=== PATIENT | female | born 1950 | race Caucasian/White ===

== ENCOUNTER 2020-12-21 12:25 | Emergency (ER) | payer BC, MEDICARE ==
[~2020-12-21] VITALS: Ht 154.9 cm; Wt 63.6 kg
[2020-12-21] MEDS ORDERED: TETANUS/DIPHTHERIA TOX ADULT 0.5 ML SYR IM ONE (13:00)
[2020-12-21] MEDS ORDERED: TETANUS/DIPHTHERIA TOX ADULT 0.5 ML SYR ONE (13:19)
[2020-12-21] MEDS ORDERED: IBUPROFEN600 MG PO (14:54)
[2020-12-21] MEDS ORDERED: BACTRIM DS TAB1 EACH PO (14:54)
[2020-12-21 15:02] VITALS: BP 113/74
== END 2020-12-21 15:00 | disposition home or self-care (01) ==
LOC: FSED 12:50
DX: S61.221A Laceration with foreign body of left index finger without damage to nail, initial encounter (principal); W26.8XXA Contact with other sharp object(s), not elsewhere classified, initial encounter; Y92.008 Other place in unspecified non-institutional (private) residence as the place of occurrence of the external cause
CPT/HCPCS: 90471; 90714; 96372; 99283

== ENCOUNTER 2024-11-30 10:16 | Emergency (ER) | payer MEDICARE ==
[~2024-11-30] VITALS: Ht 154.9 cm; Wt 63.5 kg
[~2024-11-30 10:16] MED LIST: BACTRIM DS TAB1 EACH PO; IBUPROFEN600 MG PO
[2024-11-30 10:20] VITALS: PULSE 78; RESP 15; TEMP 98.2; O2SAT 98
[2024-11-30] MEDS ORDERED: BENZONATATE100 MG PO (10:36)
[2024-11-30] MEDS ORDERED: DEBROX15 ML RIGHT EAR (10:36)
[2024-11-30] MEDS ORDERED: AZITHROMYCIN250 MG PO (10:50)
[2024-11-30] MEDS: AZITHROMYCIN 250 MG TAB PO ONE (11:20)
[2024-11-30] MEDS: AZITHROMYCIN 250 MG TAB PO SCH (11:20)
== END 2024-11-30 11:21 | disposition home or self-care (01) ==
LOC: FSED 10:23
DX: R05.9 Cough, unspecified (principal); J06.9 Acute upper respiratory infection, unspecified; H92.02 Otalgia, left ear
CPT/HCPCS: 99283

== ENCOUNTER 2025-03-16 13:59 | Emergency (ER) | payer MEDICARE ==
[~2025-03-16] VITALS: Ht 154.9 cm; Wt 71.9 kg
[~2025-03-16 13:59] MED LIST changes: +AZITHROMYCIN250 MG PO; +BENZONATATE100 MG PO; +DEBROX15 ML RIGHT EAR
[2025-03-16 14:04] VITALS: PULSE 81; RESP 20; TEMP 98.1; O2SAT 98
[2025-03-16] MEDS ORDERED: VENTOLIN HFA18 GM INH (14:30)
[2025-03-16] MEDS ORDERED: PREDNISONE20 MG PO (14:31)
[2025-03-16] MEDS ORDERED: CETIRIZINE HCL10 MG PO (14:33)
== END 2025-03-16 14:50 | disposition home or self-care (01) ==
LOC: FSED 14:04
DX: R05.9 Cough, unspecified (principal); T78.40XA Allergy, unspecified, initial encounter; Z11.52 Encounter for screening for COVID-19
CPT/HCPCS: 0223U; 87400; 99284

== ENCOUNTER 2025-05-29 08:38 | Emergency (ER) | payer MEDICARE ==
[~2025-05-29] VITALS: Ht 154.9 cm; Wt 73.3 kg
[~2025-05-29 08:38] MED LIST changes: +CETIRIZINE HCL10 MG PO; +PREDNISONE20 MG PO; +VENTOLIN HFA18 GM INH
[2025-05-29] MEDS: ERYTHROMYCIN (OPTH) 3.5 GM OINT OP ONE ×2 (09:37→09:38)
[2025-05-29] MEDS: FLUORESCEIN SOD(OPTH) 1 MG STRP OP ONE (09:37)
[2025-05-29] MEDS: TETRACAINE HCL 0.5% OPTH SOLN 4 ML BTL OP ONE (09:37)
[2025-05-29] MEDS: SODIUM CHLORIDE FLUSH 10 ML SYR IV ONE (09:38)
[2025-05-29 09:50] VITALS: PULSE 67; RESP 16; TEMP 98; O2SAT 96
== END 2025-05-29 09:50 | disposition home or self-care (01) ==
LOC: FSED 08:49
DX: S05.02XA Injury of conjunctiva and corneal abrasion without foreign body, left eye, initial encounter (principal); T26.62XA Corrosion of cornea and conjunctival sac, left eye, initial encounter; T65.891A Toxic effect of other specified substances, accidental (unintentional), initial encounter; Y92.89 Other specified places as the place of occurrence of the external cause
CPT/HCPCS: 99283; J7030

== ENCOUNTER 2025-06-14 09:31 | Emergency (ER) | payer MEDICARE ==
[~2025-06-14] VITALS: Ht 154.9 cm; Wt 73.7 kg
[2025-06-14 11:01] VITALS: PULSE 70; RESP 14; TEMP 97.7; O2SAT 97
== END 2025-06-14 11:01 | disposition home or self-care (01) ==
LOC: FSED 09:39
DX: S20.211A Contusion of right front wall of thorax, initial encounter (principal); V43.52XA Car driver injured in collision with other type car in traffic accident, initial encounter; Y92.488 Other paved roadways as the place of occurrence of the external cause
CPT/HCPCS: 71046; 93005; 99283